=== PATIENT | male | born 1980 | race Caucasian/White ===

== ENCOUNTER 2024-02-23 09:59 | Inpatient (IN) ==
--- NOTE | 2024-02-23 10:43 | Emergency Department Note ---
Impression & Plan Neutropenic fever, Leukopenia, Thrombocytopenia ED Provider Note HISTORY OF PRESENT ILLNESS: Patient is a 43-year-old male presenting with a fever and rash. Patient reports that he started developing a fever 4 days ago. Reports his temp has been up to 105. He states that he has been dosing Tylenol and ibuprofen alternating every 4 hours. He states that if he misses a dose his fever spikes. He states that starting 48 hours ago he started getting red spots all over his body. He went to urgent care yesterday and they thought it "might be cdjt-odos-xoh-mouth disease." However, patient reports the red rash is only on his extremities and trunk, and no oral pharyngeal involvement. He reports nausea. Denies any chest pain or shortness of breath. Denies any significant abdominal pain. Denies any recent travel. Patient works from home and is not around people often. Denies any DVT or PE history. He denies any recent tick bites. He does report that 4 weeks ago he was bit by a mosquito but no tick exposures. Patient is training for the [employer] marathon. He is very active and reports his normal resting heart rate is in the 50s or 60s. However, in the last 3 days his heart rate has been in the 80s and 90s. ROS: as above PHYSICAL EXAM: Constitutional: Patient appears in no acute distress. HENT: Head: Normocephalic and atraumatic. Eyes: EOMI, PERRL Mouth/Throat: Mucous membranes moist. Uvula midline. No appreciable rash in the oral pharynx Neck: Trachea midline. Neck supple. Cardiovascular: RRR, No murmurs, rubs or gallops. Intact distal pulses. Pulmonary/Chest: No respiratory distress. Breath sounds clear and equal bilaterally. No wheezes or rales. Abdominal: Abdomen soft, no tenderness, rebound or guarding. Musculoskeletal: No edema, tenderness or deformity noted. Skin: Warm and dry. Patient has diffuse petechial rash on the trunk, bilateral upper and lower extremities. Psychiatric: Appropriate mood and affect for situation. Neurological: Alert and keenly responsive. CN II-XII grossly intact, moving all extremities equally and fully. MDM: - Vitals signs stable - History obtained via patient. History as above. - Chronic conditions affecting care: none - Differential diagnoses include, but are not limited to: viral syndrome; pneumonia; UTI; tick borne illness - Order placed for continuous cardiac monitoring. At this time, monitor showed rate of 81 bpm with normal sinus rhythm, per my interpretation. - External medical records reviewed. - EKG interpreted by myself showed normal sinus rhythm. Rate 77 bpm. QT 348. No acute ischemic changes. - Laboratory workup interpreted by myself showed leukopenia (WBC 0.93); slight anemia (Hgb 13.7); thrombocytopenia (plt 85); neutropenia (ANC 0.46); normal PT/INR; stable electrolytes; normal troponin; normal lactate; normal uric acid; normal LDH; normal procalcitonin; negative Lyme; negative anaplasmosis - Viral respiratory panel negative - CXR negative for pneumonia, per my interpretation - Blood cultures obtained. - 2g IV cefepime given empirically for neutropenic fever. Given 1L NS. - UA ordered. - Patient started to have rigors. Given 1g IV tylenol. - Discussed case with hematology/oncology, Dr. Guallpa, at 12:23. He agrees with workup so far and is in agreement with admission to hospitalist service. Will see patient as consult and will determine if bone marrow biopsy is needed. - Discussion was had with case planner about patient's case and need for admission - Hospitalist consulted for admission - Patient admitted to [facility] hospitalist service for further evaluation and management. ASSESSMENT AND PLAN: Diagnosis: neutropenic fever; leukopenia; thrombocytopenia Plan: admit Past Med/Surg History Problem List (Updated 02/23/24 @ 12:32 by Allyssa Gonsales MD) Thrombocytopenia (Acute) Leukopenia (Acute) Neutropenic fever (Acute) Social History Smoking Status: Never smoker Preferred Language: Hungarian Feels Safe at Home: Yes Allergies Allergies Allergy/AdvReac Type Severity Reaction Status Date / Time No Known Allergies Allergy Unverified 02/23/24 12:15 Home Meds Home Medications Medication Instructions Recorded Confirmed desonide 0.05 % topical cream 1 applic topical DAILY 02/23/24 02/23/24 multivitamin 1 tab PO QAM 02/23/24 02/23/24 Results & Data (ED) Vital Signs Vital Signs - 24 hr 02/23/24 10:04 02/23/24 10:46 02/23/24 10:49 Temperature 36.7 C Temperature Source Temporal Artery Scan Pulse Rate 82 78 81 Pulse Rate [Left Apical] Pulse Rhythm Regular Regular Pulse Strength Normal Respiratory Rate 20 18 Respiratory Effort / Characteristics Non-Labored Spontaneous Respiratory Depth Normal Respiratory Pattern Regular Blood Pressure 122/64 Blood Pressure [Right Arm] Blood Pressure Mean 83 Blood Pressure Mean [Right Arm] Blood Pressure Position Sitting Pulse Oximetry 98 99 Oxygen Delivery Method Room Air Room Air Sepsis Recent Fever Within 48 Hours No Sepsis New/Unexplained Change in Mental Status No Sepsis Action Taken by Nursing No Action Required 02/23/24 11:46 02/23/24 12:00 02/23/24 12:30 Temperature 37.6 C H Temperature Source Oral Pulse Rate 77 74 Pulse Rate [Left Apical] 76 Pulse Rhythm Pulse Strength Respiratory Rate 18 19 14 Respiratory Effort / Characteristics Non-Labored Respiratory Depth Normal Respiratory Pattern Blood Pressure Blood Pressure [Right Arm] 122/80 Blood Pressure Mean Blood Pressure Mean [Right Arm] 94 Blood Pressure Position Pulse Oximetry 98 Oxygen Delivery Method Room Air Sepsis Recent Fever Within 48 Hours Sepsis New/Unexplained Change in Mental Status Sepsis Action Taken by Nursing Laboratory Data 02/23/24 10:35 02/23/24 10:35 Lab Results 02/23/24 02/23/24 Range/Units 10:35 10:40 WBC 0.93 L* (4.8-10.8) K/ul RBC 4.55 L (4.70-6.10) M/uL Hgb 13.7 L (14.0-18.0) g/dl Hct 40.9 L (42.0-52.0) % MCV 89.9 (80.0-100.0) fL MCH 30.1 (25.0-34.0) pg MCHC 33.5 (32.0-36.0) g/dL RDW Std Deviation 40.6 (36.4-46.3) fL RDW Coeff of Shivam 12.3 (11.5-14.5) % Plt Count 85 L (130-400) K/uL MPV 10.4 (9.4-12.4) fL Immature Gran % (Auto) 0.0 % Neut % (Auto) 49.4 % Lymph % (Auto) 18.3 % Esmeralda % (Auto) 23.7 % Eos % (Auto) 8.6 % Baso % (Auto) 0.0 % Neut # (Auto) 0.46 L* (1.40-6.50) K/uL Lymph # (Auto) 0.17 L (1.20-3.40) K/uL Esmeralda # (Auto) 0.22 (0.11-0.59) K/uL Eos # (Auto) 0.08 (0.00-0.50) K/uL Baso # (Auto) 0.00 (0.00-0.20) K/uL Immature Gran # (Auto) 0.00 L (0.01-0.20) K/uL Platelet Estimate Decreased L (Normal) PT 11.8 (9.0-12.0) Seconds INR 1.1 (0.9-1.1) Fibrinogen 327 (184-400) mg/dl Sodium 136 (136-145) mmol/L Potassium 4.0 (3.5-5.1) mmol/L Chloride 101 (98-107) mmol/L Carbon Dioxide 29 (21-32) mmol/L Anion Gap 6 (3-11) BUN 14 (6-23) mg/dl Creatinine 0.93 (0.6-1.4) mg/dl Est Cr Clr Drug Dosing 111.3 ml/min Est GFR ( Amer) 115.3 ml/min Est GFR (Non-Af Amer) 99.5 ml/min BUN/Creatinine Ratio 15.1 (10-20) Glucose 86 (70-99(Fasting)) mg/dl Lactate 1.7 (0.4-2.0) mmol/L Uric Acid 3.5 (2.6-7.2) mg/dl Calcium 8.9 (8.6-10.3) mg/dl Phosphorus 3.0 (2.5-4.9) mg/dl Magnesium 2.0 (1.7-2.4) mg/dl Total Bilirubin 0.5 (0.2-1.0) mg/dl Direct Bilirubin 0.1 (0-0.2) mg/dl AST 26 (13-39) U/L ALT 22 (7-52) U/L Alkaline Phosphatase 34 (34-104) U/L Lactate Dehydrogenase 217 (86-244) U/L Troponin I High Sens 2.4 (0-20) pg/ml Total Protein 6.7 (6.0-8.3) gm/dl Albumin 4.2 (3.4-5.0) gm/dl Procalcitonin 0.12 (0-0.5) ng/ml Adenovirus (PCR) Not Detected (NotDetected) Anaplasma Smear See Comment B. pertussis DNA (PCR) Not Detected (NotDetected) B.parapertussis DNA PCR Not Detected (NotDetected) Lyme Disease Screen Negative (Negative) C. pneumoniae DNA (PCR) Not Detected (NotDetected) Coronavirus OC43 (PCR) Not Detected (NotDetected) Coronavirus HKU1 (PCR) Not Detected (NotDetected) Coronavirus 229E (PCR) Not Detected (NotDetected) SARS-CoV-2 (PCR) Not Detected (NotDetected) Coronavirus NL63 (PCR) Not Detected (NotDetected) Human Metapneumovir PCR Not Detected (NotDetected) Influenza Type A (PCR) Not Detected (NotDetected) Influenza Type B (PCR) Not Detected (NotDetected) M. pneumoniae (PCR) Not Detected (NotDetected) Parainfluenza 1 (PCR) Not Detected (NotDetected) Parainfluenza 2 (PCR) Not Detected (NotDetected) Parainfluenza 3 (PCR) Not Detected (NotDetected) Parainfluenza 4 (PCR) Not Detected (NotDetected) RSV (PCR) Not Detected (NotDetected) Entero/Rhino (PCR) Not Detected (NotDetected) Administered Medications Discontinued Medications Cefepime HCl (Maxipime) 2,000 mg in 20 mls @ 5 mls/min IV NOW STA; Protocol Stop: 02/23/24 11:47 Last Admin: 02/23/24 11:52 Dose: 5 mls/min Documented By: [facility] Imaging Data Radiologist's Impression: Chest X-Ray 02/23/24 10:14 XR chest 1V portable HISTORY: 43 years-old Male Sepsis COMPARISON: None TECHNIQUE: AP view of the chest FINDINGS: Cardiomediastinal silhouettes are within normal limits. No pneumothorax, pleural effusion or airspace consolidation. Bones appear intact. IMPRESSION: No acute process. ACT 112: Negative or not required by law. The above report was generated using voice recognition software. It may contain grammatical, syntax or spelling errors. Electronically signed by: Vinay Kendrick M.D. 02/23/2024 10:47 AM Discharge Plan Visit Data Chief Complaint: Fever Stated Complaint: FEVER, RASH ED Provider: Allyssa Gonsales Discharge Problem: Neutropenic fever, Leukopenia, Thrombocytopenia Forms Stand Alone Forms: [facility] Prescriptions Prescriptions: No Action multivitamin Tablet 1 tab PO QAM desonide 0.05 % cream 1 applic TOPICAL DAILY Referrals Referrals: Chad Sy III, MD [Outside Practitioners] -
--- NOTE | 2024-02-23 10:49 | XRay Report ---
XR chest 1V portable HISTORY: 43 years-old Male Sepsis COMPARISON: None TECHNIQUE: AP view of the chest FINDINGS: Cardiomediastinal silhouettes are within normal limits. No pneumothorax, pleural effusion or airspace consolidation. Bones appear intact. IMPRESSION: No acute process. ACT 112: Negative or not required by law. The above report was generated using voice recognition software. It may contain grammatical, syntax o r spelling errors. Electronically signed by: Vinay Kendrick M.D. 02/23/2024 10:47 AM
[2024-02-23] MEDS: SODIUM CHLORIDE 0.9% 1,000 ML IV ONE (11:00)
[2024-02-23 11:19] LABS: Albumin Level 4.2 gm/dl (3.4-5.0); BUN Creatinine Ratio 15.1 (10-20); Bilirubin Direct 0.1 mg/dl (0-0.2); Bilirubin,Total 0.5 mg/dl (0.2-1.0); Calcium 8.9 mg/dl (8.6-10.3); Creatinine Clr Calc Pharmacy 111.3 ml/min; Est GFR (African American) 115.3 ml/min; Est GFR (Non-African American) 99.5 ml/min; Total Protein 6.7 gm/dl (6.0-8.3)
[2024-02-23 11:25] LABS: Troponin I High Sensitivity 2.4 pg/ml (0-20)
[2024-02-23 11:31] LABS: Hematocrit (blood only) 40.9 % (42.0-52.0); Hemoglobin 13.7 g/dl (14.0-18.0); Mean Corpuscular Hemoglobin 30.1 pg (25.0-34.0); Mean Corpuscular Hgb Conc 33.5 g/dL (32.0-36.0); Mean Corpuscular Volume 89.9 fL (80.0-100.0); Mean Platelet Volume 10.4 fL (9.4-12.4); Platelet Count 85 K/uL (130-400); Platelet Estimate Decreased (Normal); RDW Coefficient of Variation 12.3 % (11.5-14.5); RDW Standard Deviation 40.6 fL (36.4-46.3); Red Blood Count 4.55 M/uL (4.70-6.10)
[2024-02-23 11:33] LABS: Eosinophils # (auto) 0.08 K/uL (0.00-0.50); Eosinophils % (auto) 8.6 %; INR 1.1 (0.9-1.1); Lymphocytes # (auto) 0.17 K/uL (1.20-3.40); Lymphocytes % (auto) 18.3 %; Monocytes # (auto) 0.22 K/uL (0.11-0.59); Monocytes % (auto) 23.7 %; Neutrophils # (auto) 0.46 K/uL (1.40-6.50); Neutrophils % (auto) 49.4 %; Prothrombin Time 11.8 Seconds (9.0-12.0); White Blood Count 0.93 K/ul (4.8-10.8)
[2024-02-23 11:42] LABS: Procalcitonin 0.12 ng/ml (0-0.5)
[2024-02-23 11:47] LABS: Adenovirus PCR Not Detected (NotDetected); Bordetella parapertussis PCR Not Detected (NotDetected); Bordetella pertussis PCR Not Detected (NotDetected); Chlamydia pneumoniae PCR Not Detected (NotDetected); Coronavirus 229E PCR Not Detected (NotDetected); Coronavirus CoV-2 (COVID19)PCR Not Detected (NotDetected); Coronavirus HKU1 PCR Not Detected (NotDetected); Coronavirus NL63 PCR Not Detected (NotDetected); Coronavirus OC43PCR Not Detected (NotDetected); Human Metapneumovirus PCR Not Detected (NotDetected); Influenza A PCR Not Detected (NotDetected); Influenza B PCR Not Detected (NotDetected); Mycoplasma pneumoniae PCR Not Detected (NotDetected); Parainfluenza Virus 1 PCR Not Detected (NotDetected); Parainfluenza Virus 2 PCR Not Detected (NotDetected); Parainfluenza Virus 3 PCR Not Detected (NotDetected); Parainfluenza Virus 4 PCR Not Detected (NotDetected); Respiratory Syncytial VirusPCR Not Detected (NotDetected); Rhinovirus/Enterovirus PCR Not Detected (NotDetected)
[2024-02-23] MEDS: CEFEPIME 2,000 MG/20 ML VIAL IV STA (11:52)
[2024-02-23 12:07] LABS: Lyme Screen Rflx Confirmation Negative (Negative)
[2024-02-23 12:15] LABS: Lactate Dehydrogenase 217 U/L (86-244); Uric Acid 3.5 mg/dl (2.6-7.2)
[2024-02-23 12:31] LABS: Fibrinogen 327 mg/dl (184-400)
[2024-02-23] MEDS: ACETAMINOPHEN 1,000 MG/100 ML VIAL IV STA (12:50)
[2024-02-23 12:59] LABS: Partial Thromboplastin Time 27 Seconds (21-31)
[2024-02-23 13:12] LABS: Appearance Urine Clear (Clear); Bilirubin Urine Negative (Negative); Blood Urine Negative (Negative); Color Urine Yellow; Glucose Urine UA Negative (Negative); Ketones Urine Negative (Negative); Leukocyte Esterase Urine Negative (Negative); Nitrite Urine Negative (Negative); Protein Urine Negative (Negative); Urobilinogen Urine Negative (Negative)
--- NOTE | 2024-02-23 13:12 | History & Physical Report ---
Date of Service February 23, 2024 Assessment & Plan (1) Neutropenic fever: Plan: With associated thrombocytopenia and petechial rash. No specific signs symptoms other than generalized fatigue and rigors. No symptoms suggestive of meningitis. ?infectious - Procalcitonin negative. Follow up blood cultures, anaplasma/Babesia/ehrlichiosis/rickettsia PCR, west nile virus, monospot, HIV, RPR, consult ID ?vasculitis - CRP/ESR reassuringly negative. Follow up ANCA, NADIR, complement panel ?metastatic - follow up peripheral smear consult, consult hematology to consider bone marrow if not improving +/- any further serological testing Suspect most likely tick borne illness and will cover empirically with doxycycline (2) Thrombocytopenia: Plan: Petechial rash on exam - differential as above (3) Sepsis: Plan: Lactate and BP normal, no need for IV fluid bolus Empiric antibiotics for tick borne illness with doxycycline Plan VTE Prophylaxis - low risk Diet - regular Disposition - admit to PCU Admission and Anticipated Discharge Date Admission Date: February 23, 2024 History of Present Illness Chief Complaint: Generalized fatigue Rigors Rash Primary Care Provider: [facility] Sreedhar Peck is a 43 year old male who presents to the ER with rigors and generalized illness for the last 3 days. Symptoms started on with rigors. Ongoing fevers and he hasn't been out of bed much the last 4 days. No respiratory, gastrointestinal, urinary symptoms. No neck stiffness or significant headache. Rash start yesterday and he was seen at [facility] - suspected possible hand, foot and mouth at that time and recommended Motrin and acetaminophen only. Rash became much more widespread today. He is otherwise healthy. He did note a GI illness lasting for 1 day approximately 3 weeks ago but was mild in nature. Allergies Allergy/AdvReac Type Severity Reaction Status Date / Time No Known Allergies Allergy Unverified 02/23/24 12:15 Home Medications Medication Instructions Recorded Confirmed Type desonide 0.05 % topical cream 1 applic topical DAILY 02/23/24 02/23/24 History multivitamin 1 tab PO QAM 02/23/24 02/23/24 History Past Med/Surg History Problem List (Updated 02/23/24 @ 15:38 by Ramon Arriola MD) Sepsis Thrombocytopenia (Acute) Leukopenia (Acute) Neutropenic fever (Acute) Social History Smoking Status: Never smoker Hx Alcohol Use: Yes Hx Substance Use: No Preferred Language: Peruvian Communication Ability: Effective Dehairer Required: No Beliefs That Will Affect Care: None Current Living Situation: Spouse and Family Other Information That Helps Us Care for You: No Feels Safe at Home: Yes Safety Concerns: Feels Safe At This Time Assistive Devices: None Review of Systems 2 Review of Systems: All systems reviewed & are unremarkable except as noted in HPI & below Physical Exam 2 Constitutional: WD/WN, vitals as above Eyes: + anicteric sclerae; normal pupil size ENMT: external ear and nose normal, oropharynx normal Neck: trachea midline, no thyromegaly Respiratory: normal respiratory effort, lungs clear to auscultation Cardiovascular: RRR, no murmur, no edema Gastrointestinal (Abdomen): normal bowel sounds, soft, nontender, no hepatosplenomegaly Skin: Petechiae rash other abdomen, back and all 4 extremities with bite yue on inner thigh as can be seen in pictures above Neurologic: moves all extremities and awake; no focal motor deficits and not confused Cranial Nerves: normal facial strength, able to elevate shoulders bilaterally, no nystagmus and symmetric palate elevation Psychiatric: A+Ox3, euthymic affect Results & Data Results & Data Vital Signs (Past 12 Hours) Vital Signs Temp Pulse Pulse Resp BP BP Pulse Ox 02/23/24 12:49 37.7 C H 02/23/24 12:30 74 14 02/23/24 12:00 77 19 02/23/24 11:46 37.6 C H 76 18 122/80 98 02/23/24 10:49 81 02/23/24 10:46 78 18 99 02/23/24 10:04 36.7 C 82 20 122/64 98 O2 Del Method 02/23/24 12:49 02/23/24 12:30 02/23/24 12:00 02/23/24 11:46 Room Air 02/23/24 10:49 02/23/24 10:46 Room Air 02/23/24 10:04 Room Air Laboratory Results Abnormal lab results 02/23/24 Range/Units 10:35 WBC 0.93 L* (4.8-10.8) K/ul RBC 4.55 L (4.70-6.10) M/uL Hgb 13.7 L (14.0-18.0) g/dl Hct 40.9 L (42.0-52.0) % Plt Count 85 L (130-400) K/uL Neut # (Auto) 0.46 L* (1.40-6.50) K/uL Lymph # (Auto) 0.17 L (1.20-3.40) K/uL Immature Gran # (Auto) 0.00 L (0.01-0.20) K/uL Platelet Estimate Decreased L (Normal) Diagnostic Findings XR chest 1V portable HISTORY: 43 years-old Male Sepsis COMPARISON: None TECHNIQUE: AP view of the chest FINDINGS: Cardiomediastinal silhouettes are within normal limits. No pneumothorax, pleural effusion or airspace consolidation. Bones appear intact. IMPRESSION: No acute process. Medications Administered ER Medications Given: Acetaminophen 1000mg IV Cefepime 2000mg IV Normal saline 1000ml bolus Doxycycline 100mg IV ECG Rate (beats per minute): 77 Rhythm: normal sinus Findings: no acute ischemic change Comparison ECG Date: no prior available Code Status & VTE Plan Code Status Full VTE Prophylaxis Plan VTE Prophylaxis will be ordered: Yes PG Care Time/CCT Total # of Minutes Spent Total Time Spent with Patient: Total time spent is greater than 50% in coordination of care (as documented) at patient's floor/unit and/or counseling patient: Coding Level of Care Code 08699 INT INP/OBS CARE 3/75MIN Diagnoses Neutropenic fever D70.9; R50.81 Thrombocytopenia D69.6 Sepsis A41.9
[2024-02-23 13:23] LABS: C Reactive Protein < 0.50 mg/dl (0-0.5)
--- NOTE | 2024-02-23 13:40 | Electrocardiogram Report ---
Test Reason : Blood Pressure : / mmHG Vent. Rate : 077 BPM Atrial Rate : 077 BPM P-R Int : 142 ms QRS Dur : 090 ms QT Int : 348 ms P-R-T Axes : 028 080 062 degrees QTc Int : 393 ms Normal sinus rhythm Cannot rule out Old Septal infarct Abnormal ECG No previous ECGs available Confirmed by Jareth Sequeira ([id number]) on 02/23/2024 1:40:04 PM Referred By: REFERRED SELF Confirmed By:Jareth Sequeira
[2024-02-23] MEDS: DOXYCYCLINE HYCLATE 100 MG in DEXTROSE 5% MINI-B 100 ML IV STA (13:45)
[2024-02-23 15:48] LABS: Ferritin 357.4 ng/ml (8-388)
[2024-02-23] MEDS: ACETAMINOPHEN 325 MG TAB PO PRN (17:14)
[2024-02-23] MEDS: KETOROLAC 30 MG/ML VIAL IV PRN (18:41)
[2024-02-23] MEDS: FAMOTIDINE 20 MG TAB PO SCH (19:18)
[2024-02-24] MEDS: DOXYCYCLINE HYCLATE 100 MG in DEXTROSE 5% MINI-B 100 ML IV SCH (02:17)
[2024-02-24 07:41] LABS: Hematocrit (blood only) 39.1 % (42.0-52.0); Hemoglobin 13.1 g/dl (14.0-18.0); Mean Corpuscular Hgb Conc 33.5 g/dL (32.0-36.0); Mean Corpuscular Volume 89.5 fL (80.0-100.0); Mean Platelet Volume 10.8 fL (9.4-12.4); Platelet Count 73 K/uL (130-400); RDW Coefficient of Variation 12.3 % (11.5-14.5); Red Blood Count 4.37 M/uL (4.70-6.10); White Blood Count 1.58 K/ul (4.8-10.8)
[2024-02-24 07:59] LABS: Albumin Globulin Ratio 1.6 (0.9-2); Albumin Level 3.8 gm/dl (3.4-5.0); BUN Creatinine Ratio 14.7 (10-20); Bilirubin,Total 0.4 mg/dl (0.2-1.0); Calcium 8.5 mg/dl (8.6-10.3); Creatinine Clr Calc Pharmacy 112.1 ml/min; Est GFR (African American) 112.4 ml/min; Globulin 2.4 gm/dl (2.5-4.0); Potassium 3.8 mmol/L (3.5-5.1); Total Protein 6.2 gm/dl (6.0-8.3)
[2024-02-24 08:29] LABS: ALC (manual) 0.85 K/uL (1.2-3.4); ANC (manual) 0.43 K/uL (1.4-6.5); Basophils # (manual) 0.02 K/uL (0-0.2); Basophils % (manual) 1 %; Eosinophils # (manual) 0.08 K/uL (0-0.50); Eosinophils % (manual) 5 %; Giant Platelets 1+; Lymphocytes # (manual) 0.65 K/uL (1.2-3.4); Lymphocytes % (manual) 41 %; Monocytes # (manual) 0.21 K/uL (0.11-0.59); Monocytes % (manual) 13 %; Neutrophils # (manual) 0.43 K/uL (1.40-6.50); Neutrophils % (manual) 27 %; Reactive Lymphocytes # (manual) 0.21 K/uL; Reactive Lymphocytes % (manual) 13 %
--- NOTE | 2024-02-24 09:06 | Electrocardiogram Report ---
Test Reason : Blood Pressure : / mmHG Vent. Rate : 072 BPM Atrial Rate : 072 BPM P-R Int : 138 ms QRS Dur : 098 ms QT Int : 382 ms P-R-T Axes : 023 000 042 degrees QTc Int : 418 ms Normal sinus rhythm Possible Old Septal infarct (cited on or before 23-FEB-2024) Abnormal ECG When compared with ECG of 23-FEB-2024 10:27, No significant change was found Confirmed by Jareth Sequeira ([id number]) on 02/24/2024 9:06:25 AM Referred By: REFERRED SELF Confirmed By:Jareth Sequeira
--- NOTE | 2024-02-24 09:22 | Infectious Disease Consult ---
Date of Consultation February 24, 2024 Assessment & Plan (1) Neutropenic fever: (2) Leukopenia: (3) Sepsis: (4) Thrombocytopenia: Plan 43yo M with no significant PMH who presented on 02/22 with high fevers and chills since 02/19, and petechial rash sparing palms/soles since 02/21. Had a 24-48h GI illness 2 weeks prior. Has travel to [place] and frequently runs in the hair. Noted a bug bite on inner left thigh. No significant animal/rodent exposures. Here he has been febrile, BP 92/55, on RA. WBC 0.93 (ANC 460, ALC 170), Hb 13.7, Plt 85. Cr and LFTs wnl. ESR, CRP, and PCT wnl. UA negative. CXR negative. BCX pending. Extensive tickborne panel negative, RPP neg, Monoscreen negative. DDX is broad but does include tickborne illness, especially since hes had multiple tick bites in the past and frequently runs in the hair (most recently earlier last week). WBC is up today but continues to have similar levels of thrombocytopenia and neutropenia. He is also subjectively feeling better. Extensive tickborne and viral studies have been sent, will wait for this to return and continue him on empiric doxycycline. I do agree to have hematology team evaluate him as well. # Fevers # Neutropenia and thrombocytopenia # Recent bug bite - continue doxycycline 100mg PO twice daily - follow up pending studies (Anaplasma PCR, Babesia PCR, Ehrlichia PCR, WNV, EBV, HIV, Q fever, Rickettsia, Typhus, RPR) - f/u blood cx - hematology input ID will continue to follow. If questions or concerns, contact Infectious Disease Call Center . Gretchen Nava MD [facility], Division of Infectious Diseases [facility]: [phone] Consultation Information Consultation was provided via telemedicine using two-way real-time interactive telecommunication between the patient and the telemedicine provider. For the duration of the visit, the provider was performing the assessment from a different facility than the patient. This includesuse of bluetooth stethoscope forauscultationperformed by the telepresenter that the telemedicine provider can hear if described in the physical exam. Oil Field Technician contact information: Please call [facility] Call Center . (Phone Number For Physician Use Only) After establishing a telemedicine visit, patient was: Patient was verified with two unique identifiers, Patient/authorized rep acknowledged consent and understanding and Gave permission to continue telehealth session Time Spent with Patient: Initial => 75 min History of Present Illness Reason for Consultation: rash, neutropenic fever Attending Physician: Jorge Dumont DO History of Present Illness 43yo M with no significant PMH who presented on 02/22 with fevers, chills, and rash. He was in his usual state of health until 02/19 when he suddenly developed rigors and then developed fevers to 101, with temps up to 105 on Saturday. He noted spots on his wrists on 02/21 and his son told him his back looked blotchy. He was seen at an urgent care where he was told he may have Hand Foot and Mouth. On 02/22, rash was all over so he came to the hospital. Two weeks prior, him and his family contracted a GI illness from going to a celebration constitution party where another child was sick. The diarrhea lasted 24-48hrs and then resolved since then. He has not had any other recent flu/cold like symptoms. He travels every month to [place], was in [place] at the end of January. Also prior travel to [place]. He does report running frequently in the hair and often wears shorts, last went running on 02/17. He has had prior tick bites but removes them and sends them to [place] testing, which has always been negative. He doesnt think he had any recent tick bites, but does have a bug bite on his inner left thigh which he attributes to a mosquito but isnt sure what bug it was. He has not had any joint pains/soreness or swelling, but does have body aches. No sore throat or cough that he has noticed. says he was coughing yesterday, which he says is related to post-nasal drip. No abdominal pain, headache, neck pain/stiffness. He is not around young toddlers or daycare age children. He has a 9yo and 11yo. No similar symptoms among family. He has a courtney retriever and guinea pig, but is not in contact with any other animals. No rat/mice exposures. Here he has been febrile, BP 92/55, on RA. WBC 0.93 (ANC 460, ALC 170), Hb 13.7, Plt 85. Cr and LFTs wnl. ESR, CRP, and PCT wnl. UA negative. CXR negative. BCX pending. Allergies Allergy/AdvReac Type Severity Reaction Status Date / Time No Known Allergies Allergy Unverified 02/23/24 12:15 Home Medications Medication Instructions Recorded Confirmed Type desonide 0.05 % topical cream 1 applic topical DAILY 02/23/24 02/23/24 History multivitamin 1 tab PO QAM 02/23/24 02/23/24 History Patient History Social History Smoking Status: Never smoker Hx Alcohol Use: Yes Hx Substance Use: No Preferred Language: Greenlandic Communication Ability: Effective [employer] Driver Required: No Beliefs That Will Affect Care: None Current Living Situation: Spouse and Family Other Information That Helps Us Care for You: No Feels Safe at Home: Yes Safety Concerns: Feels Safe At This Time Assistive Devices: None Review of System 10-point review of systems reviewed and are negative except for as above. Physical Exam Physical Exam: General: Awake, alert, no acute distress HEENT: NC/AT, EOMI, mmm, small red spot at posterior pharynx otherwise no other lesions Neck: supple Lungs: respirations non-labored Heart: nl peripheral perfusion Abdomen: soft, NT/ND, no masses Back: petechial rash all over back Ext: no LE edema Skin: petechial rash over arms, torso, back, and legs. Sparing palms/soles. No open lesions. left inner thigh with large round flat dark discoloration at site of recent bug bite Neuro: O x 3 Results & Data Vital Signs (Past 12 Hours) Vital Signs Temp Pulse Pulse Resp BP Pulse Ox O2 Del Method 02/24/24 07:26 36.7 C 61 18 112/75 100 Room Air 02/24/24 07:23 57 L 02/24/24 02:37 36.7 C 68 18 112/69 96 Room Air 02/24/24 00:58 66 02/24/24 00:40 36.7 C 76 02/23/24 23:00 36.8 C 60 18 92/55 L 97 Room Air Laboratory Results Labs reviewed Diagnostic Findings Imaging reviewed
--- NOTE | 2024-02-24 13:35 | Hospitalist Progress Note ---
Date of Service February 24, 2024 Assessment & Plan (1) Neutropenic fever: (2) Sepsis: (3) Leukopenia: (4) Thrombocytopenia: Plan ALFREDO is a 43M w/ an unremarkable PMH, a recent h/o of tick and mosquito exposure who presents with a 5-day h/o Fever (up to 105), Rigors, Malaise, and Petechial Rash who was found to be Neutropenic and Thrombocytopenic in the ED. Neutropenic Fever: * Associated thrombocytopenia and petechial rash * Generalized fatigue and rigors * No suggestive Sx of meningitis * Most likely Tick-borne illness, cover empirically w/ Doxycycline * Patient currently stable without fevers/chills. * Completed Serologies (-), many still pending Sepsis: * Normal Lactate and BP, no need for IV fluid Bolus * Empiric coverage for tick-borne illness w/ Doxycycline * Consulted Infectious Disease Leukopenia: * WBC has improved to 1.58 from 0.93 since administration of Doxy overnight * Cont on empiric Doxycycline for suspected tick-borne illness * No abnormal WBCs on peripheral smear to suggest hematologic malignancy * Recheck CBC tomorrow AM, cont to follow and trend * Consult Hematology Thrombocytopenia: * Petechial Rash * Last Platelet Count today @ 0700 was 73k, cont. to follow and trend VTE Prophylaxis - low risk Diet - regular Disposition - admit to PCU Admission and Anticipated Discharge Date Admission Date: February 23, 2024 Supervising Physician Co-Signing Physician Notes I personally examined the patient and verified all aguayo points of history and exam, discussed case, and agree with decision making with Carisa Parsons MS2 feeling much better. no more fevers vitals noted nad heent nc at mmm breathing unlabored no accessory muscles good effort petechial rash but really isolated to legs and axilla sepsishighly probable to be anaplasmosislabs and fever curve are improving. 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 Otherwise as above. Subjective Slept well through the night, has been able to void, voided once during my interview with him. One episode of transient diplopia yesterday that lasted <5 minutes when he went from lying down to sitting up. Has had some mild, achy b/l chest pain centered around his sternum this morning, EKG was performed and was WNL. Chest pain has since resolved. He denies Palpitations, SOB, Coughing/Wheezing, Pleuritic Pain ALBERT, or PND. Feeling much better this morning since Doxycycline was started early this AM, states that this is the first time he has been without fever without the use of OTC antipyretics. His WBC did modestly improve overnight to 1.58 from 0.93. Review of Systems Review of Systems: (+) Postnasal drip (+) Body Aches (+) 1 Episode of transient Vision Loss ( Sat 02/21 @ 0100) No recent h/o Fevers/Chills/Night Sweats, unexplained WL No SOB, No Chest Pain No coughing/wheezing/pleuritic pain No N/V/D or changes in bowel habits No Urinary frequency, urgency, No pain/burning w/ urination No Jaw Pain/Claudication/Unilateral Headache No Focal Neuro Weakness, No numbness/tingling, No Dizziness No Memory Loss/Confusion, No neck stiffness No Joint Aches Physical Exam Physical Exam: GEN: AAO x4, Well Appearing, NAD HEENT: NC/AT, PERRLA, EOMI, Good Conjugate Gaze, Nares Patent, MMM, normal conjunctiva, normal dentition NECK: Supple, No LAD, Normal ROM. (-) Brudzinski Sign. RESP: CTAB, No Wheezing, Rales, or Rhonchi. Normal Respiratory Effort CV: RRR, Normal S1/S2, No M/R/G ABD: Soft, Non-Tender, Non-Distended, Normal Bowel Sounds, No Hepatosplenomegaly, No Masses EXT: Normal Tone & ROM, Strength 5/5 b/l, Sensation Intact, 2+ b/l, No Edema, No cyanosis NEURO: CN II-XII Intact, Sensation intact b/l, Gait Normal DERM: Skin Intact, Petechial rash extending from upper trunk. Pruritic Dark Circular Rash w/ mild central clearing on L medial lower leg w/out tenderness/erythema. Results & Data Results & Data Vital Signs (Past 12 Hours) Vital Signs Temp Pulse Pulse Resp BP Pulse Ox O2 Del Method 02/24/24 11:14 36.4 C L 64 16 121/83 98 Room Air 02/24/24 07:26 36.7 C 61 18 112/75 100 Room Air 02/24/24 07:23 57 L 02/24/24 02:37 36.7 C 68 18 112/69 96 Room Air Laboratory Results 02/24/24 02/23/24 02/23/24 07:02 13:02 10:35 WBC 1.58 L RBC 4.37 L Hgb 13.1 L Hct 39.1 L MCV 89.5 MCH 30.0 MCHC 33.5 RDW Std Deviation 40.0 RDW Coeff of Shivam 12.3 Plt Count 73 L MPV 10.8 Neutrophils % (Manual) 27 Lymphocytes % (Manual) 41 Reactive Lymphs % (Man) 13 Monocytes % (Manual) 13 Eosinophils % (Manual) 5 Basophils % (Manual) 1 Neutrophils # (Manual) 0.43 L Total Absolute Neuts 0.43 L* Lymphocytes # (Manual) 0.65 L Reactive Lymphs # 0.21 Total Abs Lymphocytes 0.85 L Monocytes # (Manual) 0.21 Eosinophils # (Manual) 0.08 Basophils # (Manual) 0.02 Giant Platelets 1+ Peripher Smr Path Cons ESR 15 Sodium 138 Potassium 3.8 Chloride 104 Carbon Dioxide 30 Anion Gap 4 BUN 14 Creatinine 0.95 Est Cr Clr Drug Dosing 112.1 Est GFR ( Amer) 112.4 Est GFR (Non-Af Amer) 97.0 BUN/Creatinine Ratio 14.7 Glucose 86 Calcium 8.5 L Ferritin 357.4 Total Bilirubin 0.4 AST 24 ALT 21 Alkaline Phosphatase 30 L C-Reactive Protein < 0.50 Total Protein 6.2 Albumin 3.8 Globulin 2.4 L Albumin/Globulin Ratio 1.6 Urine Color Yellow Urine Appearance Clear Urine pH 6.0 Ur Specific [place] 1.020 Urine Protein Negative Urine Glucose (UA) Negative Urine Ketones Negative Urine Blood Negative Urine Nitrite Negative Urine Bilirubin Negative Urine Urobilinogen Negative Ur Leukocyte Esterase Negative Monoscreen Negative Medications Administered Current Inpatient Medications Acetaminophen (Acetaminophen 325 Mg Tab) 650 mg PO Q4H PRN PRN Reason: Pain or Fever Stop: 03/24/24 15:06 Last Admin: 02/23/24 17:14 Dose: 650 mg Famotidine (Famotidine 20 Mg Tab) 20 mg PO QAM SHERWIN Stop: 03/24/24 18:29 Last Admin: 02/24/24 08:10 Dose: 20 mg Doxycycline Hyclate 100 mg/ (Dextrose) 100 mls @ 50 mls/hr IV Q12H SHERWIN Stop: 03/09/24 01:59 Last Infusion: 02/24/24 04:25 Dose: Infused Ketorolac Tromethamine (Ketorolac 30 Mg/Ml Vial) 30 mg IV Q6H PRN PRN Reason: Pain Stop: 02/28/24 18:26 Last Admin: 02/24/24 00:42 Dose: 30 mg ECG Additional Comments: [place] Electrocardiogram Report Signed Patient: ALEX RAM Admit Date: 02/23/24 MR#: [id number] Att Phy: Jorge Dumont D.O. Acct ID: [id number] Juanis Phy: [facility], [facility] Date: 1980 Fam Phy: Age: 43 Location: Sex: M Room/Bed: [facility] cc: ~ DICTATED BY: Jareth Sequeira MD Test Reason : Blood Pressure : / mmHG Vent. Rate : 072 BPM Atrial Rate : 072 BPM P-R Int : 138 ms QRS Dur : 098 ms QT Int : 382 ms P-R-T Axes : 023 000 042 degrees QTc Int : 418 ms Normal sinus rhythm Possible Old Septal infarct (cited on or before 23-FEB-2024) Abnormal ECG When compared with ECG of 23-FEB-2024 10:27, No significant change was found Confirmed by Jareth Sequeira ([id number]) on 02/24/2024 9:06:25 AM Referred By: REFERRED SELF Confirmed By:Jareth Sequeira Signed By: 02/24/2406 Dictated: 02/24/24 0807 Transcribed: Shop Lead: The status of this report is Signed. Draft = Not yet reviewed or approved by Medical Physician. Signed = Reviewed and approved by Medical Physician.
--- NOTE | 2024-02-24 18:38 | Billing Data ---
Date of Service February 24, 2024 Coding Level of Care Code 85035 SUB INP/OBS CARE MIN
[2024-02-24] MEDS: CETIRIZINE HCL 10 MG TABLET PO ONE (21:59)
[2024-02-25] MEDS: diphenhydrAMINE 50 MG/ML VIAL IV STA (03:22)
[2024-02-25 06:56] LABS: Albumin Globulin Ratio 1.6 (0.9-2); Albumin Level 3.7 gm/dl (3.4-5.0); BUN Creatinine Ratio 13.6 (10-20); Bilirubin,Total 0.6 mg/dl (0.2-1.0); Calcium 8.5 mg/dl (8.6-10.3); Creatinine Clr Calc Pharmacy 121.1 ml/min; Est GFR (African American) 121.1 ml/min; Est GFR (Non-African American) 104.5 ml/min; Globulin 2.3 gm/dl (2.5-4.0); Magnesium 1.8 mg/dl (1.7-2.4)
[2024-02-25 07:36] LABS: Hematocrit (blood only) 37.5 % (42.0-52.0); Hemoglobin 12.7 g/dl (14.0-18.0); Mean Corpuscular Hemoglobin 29.5 pg (25.0-34.0); Mean Corpuscular Hgb Conc 33.9 g/dL (32.0-36.0); Mean Corpuscular Volume 87.2 fL (80.0-100.0); Mean Platelet Volume 11.1 fL (9.4-12.4); Platelet Count 80 K/uL (130-400); RDW Coefficient of Variation 12.2 % (11.5-14.5); RDW Standard Deviation 39.3 fL (36.4-46.3)
[2024-02-25 07:37] LABS: Basophils # (auto) 0.01 K/uL (0.00-0.20); Basophils % (auto) 0.3 %; Eosinophils # (auto) 0.11 K/uL (0.00-0.50); Eosinophils % (auto) 3.1 %; Immature Granulocytes # (auto) 0.01 K/uL (0.01-0.20); Immature Granulocytes % (auto) 0.3 %; Lymphocytes # (auto) 0.59 K/uL (1.20-3.40); Lymphocytes % (auto) 16.9 %; Monocytes # (auto) 0.34 K/uL (0.11-0.59); Monocytes % (auto) 9.7 %; Neutrophils # (auto) 2.44 K/uL (1.40-6.50); Neutrophils % (auto) 69.7 %
--- NOTE | 2024-02-25 09:09 | Infectious Disease Progress Nt ---
Date of Service February 25, 2024 Assessment & Plan (1) Neutropenic fever: (2) Leukopenia: (3) Sepsis: (4) Thrombocytopenia: Plan 43yo M with no significant PMH who presented on 02/22 with high fevers and chills since 02/19, and petechial rash sparing palms/soles since 02/21. Had a 24-48h GI illness 2 weeks prior. 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 Noted a bug bite on inner left thigh. No significant animal/rodent exposures. On admission, he was febrile, BP 92/55, on RA. WBC 0.93 (ANC 460, ALC 170), Hb 13.7, Plt 85. Cr and LFTs wnl. ESR, CRP, and PCT wnl. UA negative. CXR negative. BCX ngtd x 24h. Extensive tickborne panel pending, RPP neg, Monoscreen negative. Has is now afebrile, last temp on 02/22. Neutropenia improved, lymphopenia improving, platelets still low. WBC counts are improving on doxycycline. I suspect he may have a tickborne illness, especially since hes had multiple tick bites in the past and frequently runs in the [email or web address] (most recently earlier last week). Extensive tickborne and viral studies have been sent and are still in process. This may take some time to return and patient did inquire about going home. Given improving counts and resolution of fevers, he may go home with doxycycline if he doens't want to wait and make sure he has very close outpatient follow up. Doxy therapy for tickborne illness would be 7-10 days. # Fevers - resolved # Neutropenia and thrombocytopenia - improving # Recent bug bite - continue doxycycline 100mg PO twice daily - follow up pending studies (Anaplasma PCR, Babesia PCR, Ehrlichia PCR, WNV, EBV, HIV, Q fever, Rickettsia, Typhus) - f/u blood cx - if patient wants to go home and if he remains afebrile, then can be discharged on doxycycline x 7-10 days with close outpatient follow up with PCP and f/u of pending labs ID will continue to follow. If questions or concerns, contact Infectious Disease Call Center . Gretchen Nava MD [facility], Division of Infectious Diseases [employer]: [phone] Admission and Anticipated Discharge Date Admission Date: February 23, 2024 Subjective This patient recommendation is based on a telemedicine consult request which was completed asynchronously through chart review and information provided by the primary physician. The patient was not seen or examined today. The evaluation is consultative in nature and all patient care and treatment decisions can either be accepted or rejected by the patient's primary hospital-based treating physician using their own independent medical judgment for their patient. Time Spent Reviewing Chart: 31+ minutes Results & Data Vital Signs (Past 12 Hours) Vital Signs Temp Pulse Pulse Pulse Resp BP BP 02/25/24 07:24 36.7 C 79 15 103/68 02/25/24 04:04 36.8 C 78 14 100/65 02/25/24 00:00 79 02/24/24 23:35 36.5 C 71 16 111/65 02/24/24 21:15 36.7 C 69 18 115/75 Pulse Ox O2 Del Method 02/25/24 07:24 97 Room Air 02/25/24 04:04 99 Room Air 02/25/24 00:00 02/24/24 23:35 98 Room Air 02/24/24 21:15 98 Room Air
[2024-02-25] MEDS: DOXYCYCLINE HYCLATE 100 MG CAP PO STA (13:01)
[2024-02-25 14:07] LABS: EBV Nuclear Ag Antibody <18.00 U/mL; Epstein Barr Virus Early Ag Ab <9.00 U/mL
--- NOTE | 2024-02-25 17:32 | Discharge Summary ---
Date of Service February 25, 2024 Admission HPI Per Admitting Provider Sreedhar Peck is a 43 year old male who presents to the ER with rigors and generalized illness for the last 3 days. Symptoms started on with rigors. Ongoing fevers and he hasn't been out of bed much the last 4 days. No respiratory, gastrointestinal, urinary symptoms. No neck stiffness or significant headache. Rash start yesterday and he was seen at [facility] - suspected possible hand, foot and mouth at that time and recommended Motrin and acetaminophen only. Rash became much more widespread today. He is otherwise healthy. He did note a GI illness lasting for 1 day approximately 3 weeks ago but was mild in nature. Principal Diagnosis Anaplasmosis Discharge Exam GEN: AAO x4, Ill-Appearing, NAD HEENT: NC/AT, PERRLA, EOMI, Good Conjugate Gaze, Nares Patent, MMM, normal conjunctiva, normal dentition NECK: Supple, Normal ROM RESP: CTAB, No WRR, Normal Respiratory Effort CV: RRR, Normal S1/S2, No M/R/G ABD: Soft, Non-Tender, Non-Distended, Normal Bowel Sounds, No Hepatosplenomegaly, No Masses EXT: Normal Tone & ROM, Strength 5/5 b/l, Sensation Intact, No Edema, No cyanosis NEURO: CN II-XII Intact, Sensation intact, Gait Normal DERM: Skin Intact, Petechial rash extending from Lower trunk. Pruritic Dark Circular Rash w/ mild central clearing on L medial lower leg w/out t enderness/erythema. Discharge Data Allergies Allergy/AdvReac Type Severity Reaction Status Date / Time No Known Allergies Allergy Unverified 02/23/24 12:15 Consultations 02/23/24 12:45 ED Decision to Admit Stat 02/23/24 12:58 Consult Infectious Diseases Routine 02/23/24 15:07 Consult Hematology Routine Ordered Studies 02/25/24 02/25/24 02/25/24 05:45 05:45 05:45 WBC RBC Hgb Hct MCV MCH MCHC RDW Std Deviation RDW Coeff of Shivam Plt Count MPV Immature Gran % (Auto) Neut % (Auto) Lymph % (Auto) [place] % (Auto) Eos % (Auto) Baso % (Auto) Neut # (Auto) Lymph # (Auto) [place] # (Auto) Eos # (Auto) 0.11 Baso # (Auto) 0.01 Cancelled Immature Gran # (Auto) 0.01 Cancelled Absolute Nucleated RBC Cancelled Nucleated RBC % (auto) Cancelled Neutrophils % (Manual) Cancelled Band Neutrophils % Cancelled Lymphocytes % (Manual) Cancelled Prolymphocyte % Cancelled Reactive Lymphs % (Man) Cancelled Monocytes % (Manual) Cancelled Eosinophils % (Manual) Cancelled Basophils % (Manual) Cancelled Metamyelocytes % (Man) Cancelled Myelocytes % (Man) Cancelled Promyelocytes % (Man) Cancelled Blast Cells % (Manual) Cancelled Plasma Cell % (Manual) Cancelled Other Cells % Cancelled Nucleated RBC % Cancelled Neutrophils # (Manual) Cancelled Band Neutrophils # Cancelled Total Absolute Neuts Cancelled Lymphocytes # (Manual) Cancelled Prolymphocyte # Cancelled Reactive Lymphs # Cancelled Total Abs Lymphocytes Cancelled Monocytes # (Manual) Cancelled Eosinophils # (Manual) Cancelled Basophils # (Manual) Cancelled Metamyelocytes # (Man) Cancelled Myelocytes # (Manual) Cancelled Promyelocytes # (Man) Cancelled Blast Cells # (Man) Cancelled Plasma Cell # (Manual) Cancelled Other Cells # Cancelled Nucleated RBCs # (Man) Cancelled Hypersegmented Neuts Cancelled Hyposegmented Neuts Cancelled Hypogranular Neuts Cancelled Large Granular Lymphs Cancelled # Lrg Granular Lymphs Cancelled Hairy Cells Cancelled Smudge Cells Cancelled Toxic Granulation Cancelled Toxic Vacuolation Cancelled Dohle Bodies Cancelled Bryce Rods Cancelled Platelet Estimate Cancelled Hypogranular Platelets Cancelled Giant Platelets Cancelled Platelet Satelliting Cancelled RBC Morphology Cancelled Polychromasia Cancelled Hypochromasia Cancelled Poikilocytosis Cancelled Basophilic Stippling Cancelled Anisocytosis Cancelled Microcytosis Cancelled Macrocytosis Cancelled Spherocytes Cancelled Pappenheimer Bodies Cancelled Sickle Cells Cancelled Target Cells Cancelled Tear Drop Cells Cancelled Ovalocytes Cancelled Stomatocytes Cancelled [place] Bodies Cancelled Echinocytes Cancelled Acanthocytes (Spur) Cancelled Rouleaux Cancelled RBC Agglutinates Cancelled Schistocytes Cancelled Peripher Smr Path Cons Cancelled Sezary Cell Cancelled Sodium 137 Potassium 4.0 Chloride 103 Carbon Dioxide 27 Anion Gap 7 BUN 12 Creatinine 0.88 Est Cr Clr Drug Dosing 121.1 Est GFR ( Amer) 121.1 Est GFR (Non-Af Amer) 104.5 BUN/Creatinine Ratio 13.6 Glucose 92 Calcium 8.5 L Magnesium 1.8 Total Bilirubin 0.6 AST 25 ALT 25 Alkaline Phosphatase 32 L Total Protein 6.0 Albumin 3.7 Globulin 2.3 L Albumin/Globulin Ratio 1.6 RPR EBV Capsid Ag IgG Ab EBV Capsid Ag IgM Ab EBV EA Restrict+Diffuse EBV Nuclear Antigen Ab EBV Antibody Interp HIV (1&2) Ag & Ab Conf Blood Parasites ID Cancelled 02/25/24 02/25/24 02/25/24 05:45 05:45 05:45 WBC RBC Hgb Hct MCV MCH MCHC RDW Std Deviation RDW Coeff of Shivam Plt Count MPV Immature Gran % (Auto) Neut % (Auto) Lymph % (Auto) [place] % (Auto) Eos % (Auto) Baso % (Auto) Neut # (Auto) 2.44 Lymph # (Auto) 0.59 L Cancelled [place] # (Auto) 0.34 Cancelled Eos # (Auto) Cancelled Baso # (Auto) Immature Gran # (Auto) Absolute Nucleated RBC Nucleated RBC % (auto) Neutrophils % (Manual) Band Neutrophils % Lymphocytes % (Manual) Prolymphocyte % Reactive Lymphs % (Man) Monocytes % (Manual) Eosinophils % (Manual) Basophils % (Manual) Metamyelocytes % (Man) Myelocytes % (Man) Promyelocytes % (Man) Blast Cells % (Manual) Plasma Cell % (Manual) Other Cells % Nucleated RBC % Neutrophils # (Manual) Band Neutrophils # Total Absolute Neuts Lymphocytes # (Manual) Prolymphocyte # Reactive Lymphs # Total Abs Lymphocytes Monocytes # (Manual) Eosinophils # (Manual) Basophils # (Manual) Metamyelocytes # (Man) Myelocytes # (Manual) Promyelocytes # (Man) Blast Cells # (Man) Plasma Cell # (Manual) Other Cells # Nucleated RBCs # (Man) Hypersegmented Neuts Hyposegmented Neuts Hypogranular Neuts Large Granular Lymphs # Lrg Granular Lymphs Hairy Cells Smudge Cells Toxic Granulation Toxic Vacuolation Dohle Bodies Bryce Rods Platelet Estimate Hypogranular Platelets Giant Platelets Platelet Satelliting RBC Morphology Polychromasia Hypochromasia Poikilocytosis Basophilic Stippling Anisocytosis Microcytosis Macrocytosis Spherocytes Pappenheimer Bodies Sickle Cells Target Cells Tear Drop Cells Ovalocytes Stomatocytes [place] Bodies Echinocytes Acanthocytes (Spur) Rouleaux RBC Agglutinates Schistocytes Peripher Smr Path Cons Sezary Cell Sodium Potassium Chloride Carbon Dioxide Anion Gap BUN Creatinine Est Cr Clr Drug Dosing Est GFR ( Amer) Est GFR (Non-Af Amer) BUN/Creatinine Ratio Glucose Calcium Magnesium Total Bilirubin AST ALT Alkaline Phosphatase Total Protein Albumin Globulin Albumin/Globulin Ratio RPR EBV Capsid Ag IgG Ab EBV Capsid Ag IgM Ab EBV EA Restrict+Diffuse EBV Nuclear Antigen Ab EBV Antibody Interp HIV (1&2) Ag & Ab Conf Blood Parasites ID 02/25/24 02/25/24 02/25/24 05:45 05:45 05:45 WBC RBC Hgb Hct MCV MCH MCHC RDW Std Deviation RDW Coeff of Shivam Plt Count MPV Immature Gran % (Auto) Neut % (Auto) Lymph % (Auto) [place] % (Auto) 9.7 Eos % (Auto) 3.1 Cancelled Baso % (Auto) 0.3 Cancelled Neut # (Auto) Cancelled Lymph # (Auto) [place] # (Auto) Eos # (Auto) Baso # (Auto) Immature Gran # (Auto) Absolute Nucleated RBC Nucleated RBC % (auto) Neutrophils % (Manual) Band Neutrophils % Lymphocytes % (Manual) Prolymphocyte % Reactive Lymphs % (Man) Monocytes % (Manual) Eosinophils % (Manual) Basophils % (Manual) Metamyelocytes % (Man) Myelocytes % (Man) Promyelocytes % (Man) Blast Cells % (Manual) Plasma Cell % (Manual) Other Cells % Nucleated RBC % Neutrophils # (Manual) Band Neutrophils # Total Absolute Neuts Lymphocytes # (Manual) Prolymphocyte # Reactive Lymphs # Total Abs Lymphocytes Monocytes # (Manual) Eosinophils # (Manual) Basophils # (Manual) Metamyelocytes # (Man) Myelocytes # (Manual) Promyelocytes # (Man) Blast Cells # (Man) Plasma Cell # (Manual) Other Cells # Nucleated RBCs # (Man) Hypersegmented Neuts Hyposegmented Neuts Hypogranular Neuts Large Granular Lymphs # Lrg Granular Lymphs Hairy Cells Smudge Cells Toxic Granulation Toxic Vacuolation Dohle Bodies Bryce Rods Platelet Estimate Hypogranular Platelets Giant Platelets Platelet Satelliting RBC Morphology Polychromasia Hypochromasia Poikilocytosis Basophilic Stippling Anisocytosis Microcytosis Macrocytosis Spherocytes Pappenheimer Bodies Sickle Cells Target Cells Tear Drop Cells Ovalocytes Stomatocytes [place] Bodies Echinocytes Acanthocytes (Spur) Rouleaux RBC Agglutinates Schistocytes Peripher Smr Path Cons Sezary Cell Sodium Potassium Chloride Carbon Dioxide Anion Gap BUN Creatinine Est Cr Clr Drug Dosing Est GFR ( Amer) Est GFR (Non-Af Amer) BUN/Creatinine Ratio Glucose Calcium Magnesium Total Bilirubin AST ALT Alkaline Phosphatase Total Protein Albumin Globulin Albumin/Globulin Ratio RPR EBV Capsid Ag IgG Ab EBV Capsid Ag IgM Ab EBV EA Restrict+Diffuse EBV Nuclear Antigen Ab EBV Antibody Interp HIV (1&2) Ag & Ab Conf Blood Parasites ID 02/25/24 02/25/24 02/25/24 05:45 05:45 05:45 WBC RBC Hgb Hct MCV MCH MCHC RDW Std Deviation RDW Coeff of Shivam Plt Count MPV Immature Gran % (Auto) 0.3 Neut % (Auto) 69.7 Cancelled Lymph % (Auto) 16.9 Cancelled [place] % (Auto) Cancelled Eos % (Auto) Baso % (Auto) Neut # (Auto) Lymph # (Auto) [place] # (Auto) Eos # (Auto) Baso # (Auto) Immature Gran # (Auto) Absolute Nucleated RBC Nucleated RBC % (auto) Neutrophils % (Manual) Band Neutrophils % Lymphocytes % (Manual) Prolymphocyte % Reactive Lymphs % (Man) Monocytes % (Manual) Eosinophils % (Manual) Basophils % (Manual) Metamyelocytes % (Man) Myelocytes % (Man) Promyelocytes % (Man) Blast Cells % (Manual) Plasma Cell % (Manual) Other Cells % Nucleated RBC % Neutrophils # (Manual) Band Neutrophils # Total Absolute Neuts Lymphocytes # (Manual) Prolymphocyte # Reactive Lymphs # Total Abs Lymphocytes Monocytes # (Manual) Eosinophils # (Manual) Basophils # (Manual) Metamyelocytes # (Man) Myelocytes # (Manual) Promyelocytes # (Man) Blast Cells # (Man) Plasma Cell # (Manual) Other Cells # Nucleated RBCs # (Man) Hypersegmented Neuts Hyposegmented Neuts Hypogranular Neuts Large Granular Lymphs # Lrg Granular Lymphs Hairy Cells Smudge Cells Toxic Granulation Toxic Vacuolation Dohle Bodies Bryce Rods Platelet Estimate Hypogranular Platelets Giant Platelets Platelet Satelliting RBC Morphology Polychromasia Hypochromasia Poikilocytosis Basophilic Stippling Anisocytosis Microcytosis Macrocytosis Spherocytes Pappenheimer Bodies Sickle Cells Target Cells Tear Drop Cells Ovalocytes Stomatocytes [place] Bodies Echinocytes Acanthocytes (Spur) Rouleaux RBC Agglutinates Schistocytes Peripher Smr Path Cons Sezary Cell Sodium Potassium Chloride Carbon Dioxide Anion Gap BUN Creatinine Est Cr Clr Drug Dosing Est GFR ( Amer) Est GFR (Non-Af Amer) BUN/Creatinine Ratio Glucose Calcium Magnesium Total Bilirubin AST ALT Alkaline Phosphatase Total Protein Albumin Globulin Albumin/Globulin Ratio RPR EBV Capsid Ag IgG Ab EBV Capsid Ag IgM Ab EBV EA Restrict+Diffuse EBV Nuclear Antigen Ab EBV Antibody Interp HIV (1&2) Ag & Ab Conf Blood Parasites ID 02/25/24 02/25/24 02/25/24 05:45 05:45 05:45 WBC RBC Hgb Hct MCV MCH MCHC RDW Std Deviation RDW Coeff of Shivam 12.2 Plt Count 80 L Cancelled MPV 11.1 Cancelled Immature Gran % (Auto) Cancelled Neut % (Auto) Lymph % (Auto) [place] % (Auto) Eos % (Auto) Baso % (Auto) Neut # (Auto) Lymph # (Auto) [place] # (Auto) Eos # (Auto) Baso # (Auto) Immature Gran # (Auto) Absolute Nucleated RBC Nucleated RBC % (auto) Neutrophils % (Manual) Band Neutrophils % Lymphocytes % (Manual) Prolymphocyte % Reactive Lymphs % (Man) Monocytes % (Manual) Eosinophils % (Manual) Basophils % (Manual) Metamyelocytes % (Man) Myelocytes % (Man) Promyelocytes % (Man) Blast Cells % (Manual) Plasma Cell % (Manual) Other Cells % Nucleated RBC % Neutrophils # (Manual) Band Neutrophils # Total Absolute Neuts Lymphocytes # (Manual) Prolymphocyte # Reactive Lymphs # Total Abs Lymphocytes Monocytes # (Manual) Eosinophils # (Manual) Basophils # (Manual) Metamyelocytes # (Man) Myelocytes # (Manual) Promyelocytes # (Man) Blast Cells # (Man) Plasma Cell # (Manual) Other Cells # Nucleated RBCs # (Man) Hypersegmented Neuts Hyposegmented Neuts Hypogranular Neuts Large Granular Lymphs # Lrg Granular Lymphs Hairy Cells Smudge Cells Toxic Granulation Toxic Vacuolation Dohle Bodies Bryce Rods Platelet Estimate Hypogranular Platelets Giant Platelets Platelet Satelliting RBC Morphology Polychromasia Hypochromasia Poikilocytosis Basophilic Stippling Anisocytosis Microcytosis Macrocytosis Spherocytes Pappenheimer Bodies Sickle Cells Target Cells Tear Drop Cells Ovalocytes Stomatocytes [place] Bodies Echinocytes Acanthocytes (Spur) Rouleaux RBC Agglutinates Schistocytes Peripher Smr Path Cons Sezary Cell Sodium Potassium Chloride Carbon Dioxide Anion Gap BUN Creatinine Est Cr Clr Drug Dosing Est GFR ( Amer) Est GFR (Non-Af Amer) BUN/Creatinine Ratio Glucose Calcium Magnesium Total Bilirubin AST ALT Alkaline Phosphatase Total Protein Albumin Globulin Albumin/Globulin Ratio RPR EBV Capsid Ag IgG Ab EBV Capsid Ag IgM Ab EBV EA Restrict+Diffuse EBV Nuclear Antigen Ab EBV Antibody Interp HIV (1&2) Ag & Ab Conf Blood Parasites ID 02/25/24 02/25/24 02/25/24 05:45 05:45 05:45 WBC RBC Hgb Hct MCV MCH 29.5 MCHC 33.9 Cancelled RDW Std Deviation 39.3 Cancelled RDW Coeff of Shivam Cancelled Plt Count MPV Immature Gran % (Auto) Neut % (Auto) Lymph % (Auto) [place] % (Auto) Eos % (Auto) Baso % (Auto) Neut # (Auto) Lymph # (Auto) [place] # (Auto) Eos # (Auto) Baso # (Auto) Immature Gran # (Auto) Absolute Nucleated RBC Nucleated RBC % (auto) Neutrophils % (Manual) Band Neutrophils % Lymphocytes % (Manual) Prolymphocyte % Reactive Lymphs % (Man) Monocytes % (Manual) Eosinophils % (Manual) Basophils % (Manual) Metamyelocytes % (Man) Myelocytes % (Man) Promyelocytes % (Man) Blast Cells % (Manual) Plasma Cell % (Manual) Other Cells % Nucleated RBC % Neutrophils # (Manual) Band Neutrophils # Total Absolute Neuts Lymphocytes # (Manual) Prolymphocyte # Reactive Lymphs # Total Abs Lymphocytes Monocytes # (Manual) Eosinophils # (Manual) Basophils # (Manual) Metamyelocytes # (Man) Myelocytes # (Manual) Promyelocytes # (Man) Blast Cells # (Man) Plasma Cell # (Manual) Other Cells # Nucleated RBCs # (Man) Hypersegmented Neuts Hyposegmented Neuts Hypogranular Neuts Large Granular Lymphs # Lrg Granular Lymphs Hairy Cells Smudge Cells Toxic Granulation Toxic Vacuolation Dohle Bodies Bryce Rods Platelet Estimate Hypogranular Platelets Giant Platelets Platelet Satelliting RBC Morphology Polychromasia Hypochromasia Poikilocytosis Basophilic Stippling Anisocytosis Microcytosis Macrocytosis Spherocytes Pappenheimer Bodies Sickle Cells Target Cells Tear Drop Cells Ovalocytes Stomatocytes [place] Bodies Echinocytes Acanthocytes (Spur) Rouleaux RBC Agglutinates Schistocytes Peripher Smr Path Cons Sezary Cell Sodium Potassium Chloride Carbon Dioxide Anion Gap BUN Creatinine Est Cr Clr Drug Dosing Est GFR ( Amer) Est GFR (Non-Af Amer) BUN/Creatinine Ratio Glucose Calcium Magnesium Total Bilirubin AST ALT Alkaline Phosphatase Total Protein Albumin Globulin Albumin/Globulin Ratio RPR EBV Capsid Ag IgG Ab EBV Capsid Ag IgM Ab EBV EA Restrict+Diffuse EBV Nuclear Antigen Ab EBV Antibody Interp HIV (1&2) Ag & Ab Conf Blood Parasites ID 02/25/24 02/25/24 02/25/24 05:45 05:45 05:45 WBC RBC Hgb 12.7 L Hct 37.5 L Cancelled MCV 87.2 Cancelled MCH Cancelled MCHC RDW Std Deviation RDW Coeff of Shivam Plt Count MPV Immature Gran % (Auto) Neut % (Auto) Lymph % (Auto) [place] % (Auto) Eos % (Auto) Baso % (Auto) Neut # (Auto) Lymph # (Auto) [place] # (Auto) Eos # (Auto) Baso # (Auto) Immature Gran # (Auto) Absolute Nucleated RBC Nucleated RBC % (auto) Neutrophils % (Manual) Band Neutrophils % Lymphocytes % (Manual) Prolymphocyte % Reactive Lymphs % (Man) Monocytes % (Manual) Eosinophils % (Manual) Basophils % (Manual) Metamyelocytes % (Man) Myelocytes % (Man) Promyelocytes % (Man) Blast Cells % (Manual) Plasma Cell % (Manual) Other Cells % Nucleated RBC % Neutrophils # (Manual) Band Neutrophils # Total Absolute Neuts Lymphocytes # (Manual) Prolymphocyte # Reactive Lymphs # Total Abs Lymphocytes Monocytes # (Manual) Eosinophils # (Manual) Basophils # (Manual) Metamyelocytes # (Man) Myelocytes # (Manual) Promyelocytes # (Man) Blast Cells # (Man) Plasma Cell # (Manual) Other Cells # Nucleated RBCs # (Man) Hypersegmented Neuts Hyposegmented Neuts Hypogranular Neuts Large Granular Lymphs # Lrg Granular Lymphs Hairy Cells Smudge Cells Toxic Granulation Toxic Vacuolation Dohle Bodies Bryce Rods Platelet Estimate Hypogranular Platelets Giant Platelets Platelet Satelliting RBC Morphology Polychromasia Hypochromasia Poikilocytosis Basophilic Stippling Anisocytosis Microcytosis Macrocytosis Spherocytes Pappenheimer Bodies Sickle Cells Target Cells Tear Drop Cells Ovalocytes Stomatocytes [place] Bodies Echinocytes Acanthocytes (Spur) Rouleaux RBC Agglutinates Schistocytes Peripher Smr Path Cons Sezary Cell Sodium Potassium Chloride Carbon Dioxide Anion Gap BUN Creatinine Est Cr Clr Drug Dosing Est GFR ( Amer) Est GFR (Non-Af Amer) BUN/Creatinine Ratio Glucose Calcium Magnesium Total Bilirubin AST ALT Alkaline Phosphatase Total Protein Albumin Globulin Albumin/Globulin Ratio RPR EBV Capsid Ag IgG Ab EBV Capsid Ag IgM Ab EBV EA Restrict+Diffuse EBV Nuclear Antigen Ab EBV Antibody Interp HIV (1&2) Ag & Ab Conf Blood Parasites ID 02/25/24 02/25/24 02/25/24 05:45 05:45 05:45 WBC 3.50 L Cancelled RBC 4.30 L Cancelled Hgb Cancelled Hct MCV MCH MCHC RDW Std Deviation RDW Coeff of Shivam Plt Count MPV Immature Gran % (Auto) Neut % (Auto) Lymph % (Auto) [place] % (Auto) Eos % (Auto) Baso % (Auto) Neut # (Auto) Lymph # (Auto) [place] # (Auto) Eos # (Auto) Baso # (Auto) Immature Gran # (Auto) Absolute Nucleated RBC Nucleated RBC % (auto) Neutrophils % (Manual) Band Neutrophils % Lymphocytes % (Manual) Prolymphocyte % Reactive Lymphs % (Man) Monocytes % (Manual) Eosinophils % (Manual) Basophils % (Manual) Metamyelocytes % (Man) Myelocytes % (Man) Promyelocytes % (Man) Blast Cells % (Manual) Plasma Cell % (Manual) Other Cells % Nucleated RBC % Neutrophils # (Manual) Band Neutrophils # Total Absolute Neuts Lymphocytes # (Manual) Prolymphocyte # Reactive Lymphs # Total Abs Lymphocytes Monocytes # (Manual) Eosinophils # (Manual) Basophils # (Manual) Metamyelocytes # (Man) Myelocytes # (Manual) Promyelocytes # (Man) Blast Cells # (Man) Plasma Cell # (Manual) Other Cells # Nucleated RBCs # (Man) Hypersegmented Neuts Hyposegmented Neuts Hypogranular Neuts Large Granular Lymphs # Lrg Granular Lymphs Hairy Cells Smudge Cells Toxic Granulation Toxic Vacuolation Dohle Bodies Bryce Rods Platelet Estimate Hypogranular Platelets Giant Platelets Platelet Satelliting RBC Morphology Polychromasia Hypochromasia Poikilocytosis Basophilic Stippling Anisocytosis Microcytosis Macrocytosis Spherocytes Pappenheimer Bodies Sickle Cells Target Cells Tear Drop Cells Ovalocytes Stomatocytes [place] Bodies Echinocytes Acanthocytes (Spur) Rouleaux RBC Agglutinates Schistocytes Peripher Smr Path Cons Sezary Cell Sodium Potassium Chloride Carbon Dioxide Anion Gap BUN Creatinine Est Cr Clr Drug Dosing Est GFR ( Amer) Est GFR (Non-Af Amer) BUN/Creatinine Ratio Glucose Calcium Magnesium Total Bilirubin AST ALT Alkaline Phosphatase Total Protein Albumin Globulin Albumin/Globulin Ratio RPR EBV Capsid Ag IgG Ab EBV Capsid Ag IgM Ab EBV EA Restrict+Diffuse EBV Nuclear Antigen Ab EBV Antibody Interp HIV (1&2) Ag & Ab Conf Blood Parasites ID 02/23/24 02/23/24 02/23/24 13:58 11:06 10:35 WBC RBC Hgb Hct MCV MCH MCHC RDW Std Deviation RDW Coeff of Shivam Plt Count MPV Immature Gran % (Auto) Neut % (Auto) Lymph % (Auto) [place] % (Auto) Eos % (Auto) Baso % (Auto) Neut # (Auto) Lymph # (Auto) [place] # (Auto) Eos # (Auto) Baso # (Auto) Immature Gran # (Auto) Absolute Nucleated RBC Nucleated RBC % (auto) Neutrophils % (Manual) Band Neutrophils % Lymphocytes % (Manual) Prolymphocyte % Reactive Lymphs % (Man) Monocytes % (Manual) Eosinophils % (Manual) Basophils % (Manual) Metamyelocytes % (Man) Myelocytes % (Man) Promyelocytes % (Man) Blast Cells % (Manual) Plasma Cell % (Manual) Other Cells % Nucleated RBC % Neutrophils # (Manual) Band Neutrophils # Total Absolute Neuts Lymphocytes # (Manual) Prolymphocyte # Reactive Lymphs # Total Abs Lymphocytes Monocytes # (Manual) Eosinophils # (Manual) Basophils # (Manual) Metamyelocytes # (Man) Myelocytes # (Manual) Promyelocytes # (Man) Blast Cells # (Man) Plasma Cell # (Manual) Other Cells # Nucleated RBCs # (Man) Hypersegmented Neuts Hyposegmented Neuts Hypogranular Neuts Large Granular Lymphs # Lrg Granular Lymphs Hairy Cells Smudge Cells Toxic Granulation Toxic Vacuolation Dohle Bodies Bryce Rods Platelet Estimate Hypogranular Platelets Giant Platelets Platelet Satelliting RBC Morphology Polychromasia Hypochromasia Poikilocytosis Basophilic Stippling Anisocytosis Microcytosis Macrocytosis Spherocytes Pappenheimer Bodies Sickle Cells Target Cells Tear Drop Cells Ovalocytes Stomatocytes [place] Bodies Echinocytes Acanthocytes (Spur) Rouleaux RBC Agglutinates Schistocytes Peripher Smr Path Cons Sezary Cell Sodium Potassium Chloride Carbon Dioxide Anion Gap BUN Creatinine Est Cr Clr Drug Dosing Est GFR ( Amer) Est GFR (Non-Af Amer) BUN/Creatinine Ratio Glucose Calcium Magnesium Total Bilirubin AST ALT Alkaline Phosphatase Total Protein Albumin Globulin Albumin/Globulin Ratio RPR Nonreactive EBV Capsid Ag IgG Ab 462.00 H EBV Capsid Ag IgM Ab <36.00 EBV EA Restrict+Diffuse <9.00 EBV Nuclear Antigen Ab <18.00 EBV Antibody Interp SEE NOTE HIV (1&2) Ag & Ab Conf NON-REACTIVE Blood Parasites ID Hospital Course (1) Neutropenic fever: (2) Sepsis: (3) Leukopenia: (4) Thrombocytopenia: Plan ALFREDO is a 43M w/ an unremarkable PMH, a recent h/o of tick and mosquito exposure who presents with a 5-day h/o Fever (up to 105), Rigors, Malaise, and Petechial Rash who was found to be Neutropenic and Thrombocytopenic in the ED. Neutropenic Fever: * Associated thrombocytopenia and petechial rash * Generalized fatigue and rigors, currently resolved * No suggestive Sx of meningitis * Most likely Tick-borne illness, cover empirically w/ Doxycycline * Patient currently stable without fevers/chills. * Completed Serologies (-), many still pending * WBC has improved to 3.50, Neutrophil count improved to 2.44 Sepsis: * Normal Lactate and BP, no need for IV fluid Bolus * Empiric coverage for tick-borne illness w/ Doxycycline * Consulted Infectious Disease, ID agrees w/ Anaplasma Dx Leukopenia: * WBC has improved to 3.50 * Cont on empiric Doxycycline for suspected tick-borne illness * No abnormal WBCs on peripheral smear to suggest hematologic malignancy Thrombocytopenia: * Petechial Rash * Last Platelet Count today @ 0700 was 80k VTE Prophylaxis - low risk Diet - regular Disposition - admit to PCU Total Time Total Time Spent Total Time Spent (In Minutes): see attending attestation Discharge Plan Discharge Items Patient Disposition: Home - Self-Care Reason For Visit: NEUTROPENIC Discharge Diagnosis: Anaplasmosis Activity: Per Instructions section Non-emergency contact: Primary Care Provider Call non-emergency contact if: you have any medication questions and your symptoms worsen Follow-up/Referrals: [facility] [Primary Care Provider] - Diet: Regular Addtl Attending Provider Instructions: You were admitted with presumed anaplasmosis. We are planning to treat you with doxycycline. You should take 100mg twice a day for the next 9 days. Doxycycline can make you more sensitive to the sunlight, so if your going to be outside then you should wear sunscreen. You should follow up with your primary care doctor this week or the beginning of next week for follow-up labs. If you have any concerns for worsening symptoms please call or PCP or come back to the ED. Pending Studies at Discharge: Yes Stand-Alone Forms: My [facility] [email or web address], Smoking Cessation Medications and DC Order Prescriptions: New doxycycline hyclate 100 mg Capsule 100 mg PO BID 9 Days Qty: 18 0RF Continued multivitamin Tablet 1 tab PO QAM desonide 0.05 % cream 1 applic TOPICAL DAILY Admission Data Admit Date/Time: 02/23/24 12:50 Attending Provider: Jorge Dumont Admit Provider: Ramon Arriola Primary Care Provider: [facility] Other Providers: Ramon Arriola; Jeri Oviedo; Martin Meraz; Judy Rodriguez; Gretchen Nava; Meg Rowley; Claudia Cruz; Merle Hardy
--- NOTE | 2024-02-25 18:21 | Hospitalist Progress Note ---
Date of Service February 25, 2024 Assessment & Plan (1) Neutropenic fever: (2) Sepsis: (3) Leukopenia: (4) Thrombocytopenia: Plan Plan ALFREDO is a 43M w/ an unremarkable PMH, a recent h/o of tick and mosquito exposure who presents with a 5-day h/o Fever (up to 105), Rigors, Malaise, and Petechial Rash who was found to be Neutropenic and Thrombocytopenic in the ED. Neutropenic Fever: * Associated thrombocytopenia and petechial rash * Generalized fatigue and rigors, currently resolved * No suggestive Sx of meningitis * Most likely Tick-borne illness, cover empirically w/ Doxycycline * Reaction last night does not seem consitant with allergic reaction, so will trial further dose of doxycycline today * Patient currently stable without fevers/chis. * Completed Serologies (-), many still pending * WBC has improved to 3.50, Neutrophil count improved to 2.44 Sepsis: * Normal Lactate and BP, no need for IV fluid Bolus * Empiric coverage for tick-borne illness w/ Doxycycline * Consulted Infectious Disease, ID agrees w/ Anaplasma Dx Leukopenia: * WBC has improved to 3.50 * Cont on empiric Doxycycline for suspected tick-borne illness * No abnormal WBCs on peripheral smear to suggest hematologic malignancy Thrombocytopenia: * Petechial Rash * Last Platelet Count today @ 0700 was 80k VTE Prophylaxis - low risk Diet - regular Disposition - admit to PCU Admission and Anticipated Discharge Date Admission Date: February 23, 2024 Supervising Physician Co-Signing Physician Notes I personally examined the patient and verified all aguayo points of history and exam, discussed case, and agree with decision making with Carisa Parsons MS2 feeling much better. no more fevers, moving well. overall feeling better. vague red rash and swelling last night. not itchy, not hives. no tongue swelling. no sob/stridor/wheezing. vitals noted nad heent nc at mmm breathing unlabored no accessory muscles good effort walking around room no distress. no hives. no stridor. no dyspnea. sepsishighly probable to be anaplasmosislabs and fever curve are improving. 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 doubt doxy reaction was truly allergic - suspect was more circumstantial than truly allergic - discussed with pt in depth - he understands and is quite willing to try doxy again (discussed that anaplasma is optimally treated with doxy, other treatments are less well-defined) (f/u later - has tolerated resumed doxy without problems) otherwise as above Subjective Pt notes reaction overnight. Increased hand swelling/feet swelling. Red rash on trunk. Facial swelling. Denies tongue, throat swelling, difficulty breathing, hives. Review of Systems Review of Systems: As per above Physical Exam Physical Exam: GEN: AAO x4, Ill-Appearing, NAD HEENT: NC/AT, PERRLA, EOMI, Good Conjugate Gaze, Nares Patent, MMM, normal conjunctiva, normal dentition NECK: Supple, Normal ROM RESP: CTAB, No WRR, Normal Respiratory Effort CV: RRR, Normal S1/S2, No M/R/G ABD: Soft, Non-Tender, Non-Distended, Normal Bowel Sounds, No Hepatosplenomegaly, No Masses EXT: Normal Tone & ROM, Strength 5/5 b/l, Sensation Intact, No Edema, No cyanosis NEURO: CN II-XII Intact, Sensation intact, Gait Normal DERM: Skin Intact, Petechial rash extending from Lower trunk. Pruritic Dark Circular Rash w/ mild central clearing on L medial lower leg w/out tenderness/erythema. Results & Data Results & Data Vital Signs (Past 12 Hours) Vital Signs Temp Pulse Pulse Resp BP Pulse Ox O2 Del Method 02/25/24 16:23 68 02/25/24 15:23 36.6 C 74 15 118/78 100 Room Air 02/25/24 11:00 36.7 C 67 13 114/65 96 Room Air 02/25/24 09:22 67 02/25/24 07:24 36.7 C 79 15 103/68 97 Room Air Resident Activity Tracking Resident Involvement: Resident Care Provided Care Provided: Adult [facility]
--- NOTE | 2024-02-25 18:47 | Billing Data ---
Date of Service February 25, 2024 Coding Level of Care Code 36057 SUB INP/OBS CARE
[2024-02-25] MEDS: DOXYCYCLINE HYCLATE 100 MG CAP PO SCH (21:05)
[2024-02-26 06:51] LABS: Hematocrit (blood only) 38.1 % (42.0-52.0); Hemoglobin 12.9 g/dl (14.0-18.0); Mean Corpuscular Hgb Conc 33.9 g/dL (32.0-36.0); Mean Corpuscular Volume 88.6 fL (80.0-100.0); Mean Platelet Volume 10.7 fL (9.4-12.4); Platelet Count 85 K/uL (130-400); RDW Coefficient of Variation 12.2 % (11.5-14.5); RDW Standard Deviation 39.4 fL (36.4-46.3); White Blood Count 3.43 K/ul (4.8-10.8)
[2024-02-26 07:04] LABS: Basophils # (auto) 0.01 K/uL (0.00-0.20); Basophils % (auto) 0.3 %; Eosinophils # (auto) 0.15 K/uL (0.00-0.50); Eosinophils % (auto) 4.4 %; Immature Granulocytes # (auto) 0.01 K/uL (0.01-0.20); Immature Granulocytes % (auto) 0.3 %; Lymphocytes # (auto) 0.69 K/uL (1.20-3.40); Lymphocytes % (auto) 20.1 %; Monocytes # (auto) 0.31 K/uL (0.11-0.59); Neutrophils # (auto) 2.26 K/uL (1.40-6.50); Neutrophils % (auto) 65.9 %
--- NOTE | 2024-02-26 09:57 | Discharge Summary ---
Date of Service February 26, 2024 Principal Diagnosis Anaplasmosis Discharge Exam GEN: AAO x4, Ill-Appearing, NAD NECK: Supple, Normal ROM RESP:No increased work of breathing CV: Well perfused EXT: Normal Tone & ROM, Strength 5/5 b/l, Sensation Intact, No Edema, No cyanosis NEURO: CN II-XII Intact, Sensation intact, Gait Normal DERM: Skin Intact, Petechial rash extending from Lower trunk. Pruritic Dark Circular Rash w/ mild central clearing on L medial lower leg w/out tenderness/erythema. Discharge Data Allergies Allergy/AdvReac Type Severity Reaction Status Date / Time No Known Allergies Allergy Unverified 02/23/24 12:15 Consultations 02/23/24 12:45 ED Decision to Admit Stat 02/23/24 12:58 Consult Infectious Diseases Routine Hospital Course (1) Neutropenic fever: (2) Sepsis: (3) Leukopenia: (4) Thrombocytopenia: Plan JH is a 43M w/ an unremarkable PMH, a recent h/o of tick and mosquito exposure who presents with a 5-day h/o Fever (up to 105), Rigors, Malaise, and Petechial Rash who was found to be Neutropenic and Thrombocytopenic in the ED. Neutropenic Fever: * Associated thrombocytopenia and petechial rash * Generalized fatigue and rigors, currently resolved * No suggestive Sx of meningitis * Most likely Tick-borne illness, cover empirically w/ Doxycycline * Patient currently stable without fevers/chills. * Completed Serologies (-), many still pending * WBC has improved to 3.5 Sepsis: Resolved * Normal Lactate and BP * Empiric coverage for tick-borne illness w/ Doxycycline * Consulted Infectious Disease, ID agrees w/ Anaplasma Dx Leukopenia: * WBC has improved to 3.50 * Cont on empiric Doxycycline for suspected tick-borne illness * No abnormal WBCs on peripheral smear to suggest hematologic malignancy * Should get f/u CBC with PCP in 3-5 days Thrombocytopenia: * Petechial Rash * Last Platelet Count 85 prior to d/c * F/u labs with PCP as per above * Fell that petechial rash likely secondary to micro trauma with running in the hair in combination to moderately low platelet count Total Time Total Time Spent Total Time Spent (In Minutes): <30 Discharge Plan Discharge Items Patient Disposition: Home - Self-Care Reason For Visit: NEUTROPENIC Discharge Diagnosis: Anaplasmosis Activity: Per Instructions section Non-emergency contact: Primary Care Provider Call non-emergency contact if: you have any medication questions and your symptoms worsen Follow-up/Referrals: [facility] [Primary Care Provider] - (Please contact the [place] to schedule your hospital discharge follow up. Thank you! ) Diet: Regular Addtl Attending Provider Instructions: You were admitted with presumed anaplasmosis. We are planning to treat you with doxycycline. You should take 100mg twice a day for the next 8 days. Next dose is due tonight at 8pm. Doxycycline can make you more sensitive to the sunlight, so if your going to be outside then you should wear sunscreen. You should follow up with your primary care doctor this week or the beginning of next week for follow-up labs. If you have any concerns for worsening symptoms please call or PCP or come back to the ED. Pending Studies at Discharge: Yes Stand-Alone Forms: My [employer], Smoking Cessation Medications and DC Order Prescriptions: New doxycycline hyclate 100 mg capsule 100 mg PO BID 8 Days Qty: 16 0RF Continued multivitamin Tablet 1 tab PO QAM desonide 0.05 % cream 1 applic TOPICAL DAILY Discharge Orders: Discharge Order (Routine); Ordered 02/26/24 Ordered By: Shasha Mancia Admission Data Admit Date/Time: 02/23/24 12:50 Attending Provider: Jorge Dumont Admit Provider: Ramon Arriola Primary Care Provider: [facility] Other Providers: Ramon Arriola; Jeri Oviedo; Martin Meraz; Judy Rodriguez; Alcides Nava Antonie J.; Claudia Cruz; Merle Hardy Other Interventions: Discharge Summary Assessment (RN) Last Done: 02/26/24 11:05 Supervising Physician Co-Signing Physician Notes I personally examined the patient and verified all aguayo points of history and exam, discussed case, and agree with decision making with Dr Mancia feels good wants to go home no problems with doxycycline yesterday or this morning. vitals noted nad heent nc at mmm breathing unlabored no accessory muscles good effort walking around room no distress. no hives. no stridor. no dyspnea. sepsishighly probable to be anaplasmosislabs and fever curve are improving. 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 doubt doxy reaction was truly allergic - suspect was more circumstantial than truly allergic - And he tolerated 3 follow-up doses of doxycycline without difficulty. Safe/stable for home. Outpatient follow-up. Lab work next week. otherwise as above Resident Activity Tracking Resident Involvement: Resident Care Provided Care Provided: Adult Hospital Medicine
--- NOTE | 2024-02-26 12:57 | Billing Data ---
Date of Service February 26, 2024 Coding Level of Care Code 76487 IN/OBS DISCH 30 MIN/LESS
[2024-02-27 15:09] LABS: Ehrlichia chaff DNA Bld Negative (Negative)
[2024-02-28 01:52] LABS: Anti Nuclear Antibody Screen NEGATIVE (NEGATIVE); West Nile Virus PCR NOT DETECTED (NOT DETECTED); West Nile Virus, PCR Source Serum
[2024-02-28 03:03] LABS: ANCA Screen Negative (Negative); Myeloperoxidase Ab <1.0 AI (<1.0); Proteinase-3 AB <1.0 AI (<1.0)
== END 2024-02-26 11:26 | disposition home or self-care (01) | DRG 872 ==
LOC: ED 09:59 → SUATTDRO 12:50 → 2S 12:50